=== PATIENT | male | born 1950 | race Caucasian/White ===

== ENCOUNTER → 2017-02-17 | Outpatient (CLI) | payer OTHER ==
[~2017-02-17] MED LIST: GADOBUTROL 7.5 MMOL/7.5 ML VIAL INT ART ONE; IOHEXOL 300 MG/ML 50 ML VIAL. INT ART ONE; LIDOCAINE 1% Multi-Dose 20 ML VIAL. ID ONE
--- NOTE | 2017-02-17 13:27 | KCIC ---
PROCEDURE SHOULDER ARTHROGRAM USING FLUOROSCOPY PRIOR TO MRI INDICATIONS: Previous right shoulder rotator cuff repair in 2002. The patient fell in September 2016 onto the right forearm and felt a pop in the right shoulder with pain. Limited range of motion. PROCEDURE: The procedure and possible complications including bleeding and infection and allergic reaction were explained. The patient provided both verbal and written consent. A timeout was performed including confirming the name of the patient and the date of and the type of procedure and the side of the procedure. Allergic reactions were reviewed. The right shoulder was marked. The right shoulder was prepped with Chloraprep and draped in the usual sterile fashion. A total of 3 cc of 1% lidocaine was utilized for local anesthesia. Using sterile technique and fluoroscopic guidance, a 22 Gauge spinal needle was directed into the right glenohumeral joint from an anterior approach. 15 cc of a solution containing 5 cc of Isovue 200 and 0.1 cc of gadolinium and 5 cc of 1 percent lidocaine and 10 cc of sterile normal saline was injected intra-articularly into the glenohumeral joint under fluoroscopic observation. Fluoroscopic spot view(s) were obtained confirming intra-articular position of the contrast. The needle was removed and hemostasis was deemed adequate. The patient tolerated the procedure well without complication. The patient was sent to the MRI suite for further imaging. Followup will be with the patient's physician. Total fluoroscopic time: 1 minutes and 5 seconds. Total fluoroscopic spot view(s): 4. IMPRESSION: Fluoroscopic guided right shoulder arthrogram was performed as discussed above without complication. Electronically signed by: David Bustillo MD (Feb 17, 2017 13:25:35)
--- NOTE | 2017-02-17 13:42 | KCIC ---
PROCEDURE MRI right shoulder arthrogram HISTORY Right shoulder pain. Previous rotator cuff repair surgery and 2003. The patient fell in September 2016 and heard a pop. Right shoulder pain and limited range of motion since that time. TECHNIQUE After intra-articular injection of gadolinium, post arthrogram MRI sequences of the right shoulder were performed in all 3 planes. COMPARISON None available. FINDINGS There is paramagnetic susceptibility artifact involving the humeral head and the lateral aspect of the acromial humeral space consistent with previous rotator cuff repair surgery. There is a large complete tear of the rotator cuff of the right shoulder involving the infraspinatus and supraspinatus tendons. These tendons are retracted medially completing uncovering the humeral head. There is mild superior and posterior subluxation of the humeral head with respect to the glenoid fossa as a result. There is atrophy of the supraspinatus and infraspinatus muscles and to a lesser extent the teres minor muscle. There is a tear of the superior lateral aspect of the subscapularis tendon attachment to the lesser tubercle. There is a longitudinal split tear of the long head of the biceps tendon within the bicipital groove. There does appear to be an intact intra-articular portion extending to the glenoid labrum. No tear of the glenoid labrum is apparent. No spinoglenoid notch ganglion cyst is seen. No fracture or marrow infiltrative process or bone contusion is seen. 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 A type 3 acromial process is seen. These findings may impinge the acromial humeral space. Fluid is seen within the subdeltoid and subacromial bursa as a result of the complete tear. IMPRESSION Large complete rotator cuff tear. Tear of the lateral superior aspect of the subscapularis tendon attachment to the lesser tubercle. Partial longitudinal split tear within the tendon of the long head of the biceps. Electronically signed by: David Bustillo MD (Feb 17, 2017 13:41:54)
== END | disposition home or self-care (01) ==
LOC: KCIC 10:30
PROVIDERS: ATTEND Orthopaedic Surgery
DX: M75.121 Complete rotator cuff tear or rupture of right shoulder, not specified as traumatic (principal); S46.911A Strain of unspecified muscle, fascia and tendon at shoulder and upper arm level, right arm, initial encounter; X58.XXXA Exposure to other specified factors, initial encounter; Y93.89 Activity, other specified; Y92.89 Other specified places as the place of occurrence of the external cause; Y99.8 Other external cause status
CPT/HCPCS: 73040; 73222; Q9967; A9585